=== PATIENT | female | born 1975 | race Caucasian/White ===

== ENCOUNTER 2016-08-14 11:33 | Emergency (ER) | payer OTHER ==
[~2016-08-14] VITALS: Ht 162.6 cm; Wt 101.2 kg
[~2016-08-14 11:33] MED LIST: MOTRIN600 MG PO; MOTRIN800 MG PO; PREDNISONE20 MG PO; ZITHROMAX250 MG PO
[2016-08-14 12:38] LABS: HEMATOCRIT 41.2 % (36.0-46.0); MCH 30.8 PG (29.0-34.0); MCHC 33.3 G/DL (30.0-36.0); MCV 92.6 FL (83-99); PLATELET COUNT 206 K/uL (156-360); RBC DIS.WIDTH-CV 11.9 % (11.8-14.6); RBC DIS.WIDTH-SD 41.1 % (39-53); RED BLOOD COUNT 4.45 M/uL (3.80-5.20)
[2016-08-14 12:48] LABS: ADD MIUA? YES; BILIRUBIN NEGATIVE; BLOOD LARGE; COLOR YELLOW ((YELLOW)); GLUCOSE (STRIP) NEGATIVE; KETONES NEGATIVE; LEUKOCYTES LARGE; NITRITE NEGATIVE; PROTEIN (STRIP) NEGATIVE; SPECIFIC GRAVITY 1.009 (1.000-1.030); UROBILINOGEN 0.2 MG/DL (0.2-1.0)
[2016-08-14 12:51] LABS: CHLORIDE 106 mEq/L (99-109); POTASSIUM 4.2 mEq/L (3.7-5.4); SODIUM 138 mEq/L (136-147)
[2016-08-14 12:53] LABS: GLUCOSE 96 mg/dL (70-99)
[2016-08-14 12:54] LABS: ANION GAP 9 MEQ/L (2-14)
[2016-08-14 12:54] LABS: BACTERIA RARE /HPF; EPITHELIAL CELLS 1+ /HPF; MUCUS NONE SEEN /LPF; RED BLOOD CELLS NONE SEEN /HPF (0-5); UCUL ADDED? NO
[2016-08-14 12:55] LABS: TOTAL BILIRUBIN 0.5 mg/dL (0.0-1.0)
[2016-08-14 12:56] LABS: ALKALINE PHOSPHATASE 65 IU/L (3-129)
[2016-08-14 12:57] LABS: GFR ESTIMATE (CALCULATED) > 59 mL/min/
[2016-08-14 12:58] LABS: UREA NITROGEN (BUN) 9 mg/dL (9-23)
[2016-08-14 13:09] LABS: QUANTITATIVE HCG < 4.0 MIU/ML
[2016-08-14 13:36] LABS: LIPASE 19 U/L (1.0-51.0)
[2016-08-14] MEDS ORDERED: PERCOCET 5/31 TABLET PO (16:07)
[2016-08-14] MEDS ORDERED: ZOFRAN ODT4 MG PO (16:07)
[2016-08-14 16:35] VITALS: BP 114/68
== END 2016-08-14 16:37 | disposition home or self-care (01) ==
LOC: RME 11:33 → EME 11:33 → RME 16:37
DX: N83.201 Unspecified ovarian cyst, right side (principal); N83.202 Unspecified ovarian cyst, left side; R11.0 Nausea; Z97.5 Presence of (intrauterine) contraceptive device; Z87.891 Personal history of nicotine dependence
CPT/HCPCS: 76856; 80053; 81003; 83690; 84702; 85027; 99281; 99284

== ENCOUNTER 2016-09-28 15:22 | Emergency (ER) | payer OTHER ==
[~2016-09-28] VITALS: Ht 162.6 cm; Wt 100.0 kg
[~2016-09-28 15:22] MED LIST changes: +PERCOCET 5/31 TABLET PO; +ZOFRAN ODT4 MG PO
[2016-09-28 15:27] VITALS: BP 136/77
[2016-09-28] MEDS ORDERED: FLEXERIL10 MG PO (17:10)
== END 2016-09-28 17:42 | disposition home or self-care (01) ==
LOC: EME 15:22
PROC: 3E0234Z Introduction of Serum, Toxoid and Vaccine into Muscle, Percutaneous Approach (ICD-10-PCS; principal; 2016-09-28)
DX: S00.03XA Contusion of scalp, initial encounter (principal); W10.9XXA Fall (on) (from) unspecified stairs and steps, initial encounter
CPT/HCPCS: 99281; 99284